=== PATIENT | male | born 1980 | race Caucasian/White ===

== ENCOUNTER → 2019-11-08 | Outpatient (CLI) | payer MEDICARE, OTHER ==
--- NOTE | 2019-11-08 13:53 | XR ---
EXAMINATION TYPE: XR lumbosacral spine min 4V DATE OF EXAM: 11/08/2019 CLINICAL HISTORY: Degeneration of lumbar disc per order. Low back pain into right leg for patient. TECHNIQUE: Frontal, lateral, and oblique images of the lumbar spine are obtained. COMPARISON: None FINDINGS: There are 5 lumbar type vertebral bodies identified. The lumbar spine shows somewhat stra ightened alignment without evidence of acute fracture or dislocation. Vertebral body heights and disk space heights are within normal limits. The oblique images appear within normal limits. The overl chiki soft tissue appears unremarkable. IMPRESSION: As above.
== END | disposition home or self-care (01) ==
LOC: RADXRMAIN 13:19
PROVIDERS: ATTEND Family Medicine
DX: M51.36 Other intervertebral disc degeneration, lumbar region (principal)
CPT/HCPCS: 72110

== ENCOUNTER → 2019-12-13 | Day surgery (SDC) | payer MEDICARE, OTHER ==
[2019-12-11 10:46] VITALS: BMI 27.5
[~2019-12-13] MED LIST: LACTATED RINGERS 1,000 ML IV SCH; LIDOCAINE 1% (10MG/ML) FOR IV START INTRADERMA PRN; MIDAZOLAM 2 MG/2 ML VIAL ONE; PROPOFOL 10 MG/ML 20 ML VIAL IV ONE
[2019-12-13 08:44] VITALS: TEMP 97.6
--- NOTE | 2019-12-13 09:26 | P.GSHP ---
History of Present Illness H&P Date: 12/13/19 CHIEF COMPLAINT: Colon screen HISTORY OF PRESENT ILLNESS: The patient is a 39-year-old male who presents for colon screen. Lower endoscopy was offered for further evaluation and management. PAST MEDICAL HISTORY: Please see list. PAST SURGICAL HISTORY: Please see list. MEDICATIONS: Please see list. ALLERGIES: Please see list. SOCIAL HISTORY: No illicit drug use FAMILY HISTORY: No reports of Crohn disease or ulcerative colitis. REVIEW OF ORGAN SYSTEMS: CONSTITUTIONAL: No reports of fevers or chills. PHYSICAL EXAM: VITAL SIGNS: Stable GENERAL: Well-developed pleasant in no acute distress. HEENT: No scleral icterus. Extraocular movements grossly intact. Moist buccal mucosa. NECK: Supple without lymphadenopathy. CHEST: Unlabored respirations. Equal bilateral excursions. CARDIOVASCULAR: Regular rate and rhythm. Distal 2+ pulses. ABDOMEN: Soft, nontender, nondistended. MUSCULOSKELETAL: No clubbing, cyanosis, or edema. ASSESSMENT: 1. Colon screen. PLAN: 1. Recommend proceeding with a lower endoscopy Past Medical History Past Medical History: Musculoskeletal Disorder Additional Past Medical History / Comment(s): bulging disc, sciatic pain, DDD, family hx. colon cancer History of Any Multi-Drug Resistant Organisms: None Reported Past Surgical History: No Surgical Hx Reported Additional Past Anesthesia/Blood Transfusion Reaction / Comment(s): no family hx. of problems w/anesthesia Smoking Status: Never smoker - Past Family History Father Family Medical History: Cancer Additional Family Medical History / Comment(s): colon Medications and Allergies Home Medications Medication Instructions Recorded Confirmed Type Cyclobenzaprine [Flexeril] 10 mg PO TID PRN 12/11/19 12/13/19 History Multivitamin [Multivitamins Adult 1 each PO DAILY 12/11/19 12/13/19 History Gummies] Allergies Allergy/AdvReac Type Severity Reaction Status Date / Time No Known Allergies Allergy Verified 12/13/19 08:33 Surgical - Exam Vital Signs Temp Pulse Resp BP Pulse Ox 97.6 F 110 H 18 128/81 96 12/13/19 08:42 12/13/19 08:42 12/13/19 08:42 12/13/19 08:42 12/13/19 08:42
[2019-12-13 09:49] VITALS: RESP 16
[2019-12-13 09:57] VITALS: BP 112/74; PULSE 85
--- NOTE | 2019-12-13 09:58 | P.PCN ---
Date of Procedure: 12/13/19 Description of Procedure: PREOPERATIVE DIAGNOSIS: Family history malignant colon polyps, father High-risk colon cancer screening POSTOPERATIVE DIAGNOSIS: Family history malignant colon polyps, father High-risk colon cancer screening Tubular adenoma, ascending colon Tubular adenoma, sigmoid colon OPERATION: Colonoscopy to the ileocecal valve and appendiceal orifice. Colonoscopy with cold forceps biopsies SURGEON: Meenakshi Alas MD. ANESTHESIA: MAC. INDICATIONS: The patient is an 39-year-old male who presents family history of malignant colon polyps who presents for first colonoscopy screening. Benefits and risks were described and informed consent was obtained. DESCRIPTION OF PROCEDURE: The patient had undergone Suprep. He had been brought into the operating room and laid in the left lateral decubitus position. After adequate intravenous sedation, the rectum was examined with 2% lidocaine jelly. The prostate was unremarkable. No external hemorrhoids were encountered. The rectal tone was within normal limits. No lesions were palpated in the rectal vault. An Olympus colonoscope was advanced until the ileocecal valve and appendiceal orifice were clearly viewed. The prep was good. No sigmoid diverticulosis was encountered. Multiple colonic polyps were found and removed with cold forceps biopsy. No evidence of focal colitis was found. Retroflexion of the scope demonstrated grade 1 internal hemorrhoids without active bleeding or inflammation. The colon was desufflated. The patient had tolerated the procedure well. Withdrawal time was over 6 minutes. FINDINGS: Aronchick preparation quality scale 2 (1-5) Internal hemorrhoids, grade 1 No external hemorrhoids No arteriovenous malformations No sigmoid diverticulosis Removal of 4 polyps: - Cold forceps biopsy at 15 cm from the anal verge x 3, 3 to 4 mm polyps, descending colon. - Cold forceps biopsy at ascending colon, 4 mm polyp. No focal colitis. RECOMMENDATIONS: Repeat colonoscopy in 5 years, 2024 Plan - Discharge Summary Discharge Rx Participant: No New Discharge Prescriptions: Continue Cyclobenzaprine [Flexeril] 10 mg PO TID PRN PRN Reason: Muscle Spasm Multivitamin [Multivitamins Adult Gummies] 1 each PO DAILY Discharge Medication List Cyclobenzaprine [Flexeril] 10 mg PO TID PRN 12/11/19 [History] Multivitamin [Multivitamins Adult Gummies] 1 each PO DAILY 12/11/19 [History] Follow up Appointment(s)/Referral(s): Meenakshi Alas MD [STAFF PHYSICIAN] - 12/26/19 Patient Instructions/Handouts: *Surgery [facility] - (Anesthesia) Endoscopy Discharge Instructions, Colorectal Polyps (DC) Activity/Diet/Wound Care/Special Instructions: Repeat colonoscopy 5 years, 2024 Discharge Disposition: HOME SELF-CARE
== END | disposition home or self-care (01) ==
LOC: ORWHC2ENDO 08:15
PROVIDERS: ATTEND Surgery Plastic and Reconstructive Surgery
DX: Z12.11 Encounter for screening for malignant neoplasm of colon (principal); D12.2 Benign neoplasm of ascending colon; K63.5 Polyp of colon; K64.0 First degree hemorrhoids; Z80.0 Family history of malignant neoplasm of digestive organs; M54.30 Sciatica, unspecified side; Z79.899 Other long term (current) drug therapy; Z87.891 Personal history of nicotine dependence
CPT/HCPCS: 88305; 45380; J2250; J2704

== ENCOUNTER 2025-04-05 08:11 | Day surgery (SDC) | payer MEDICARE, OTHER ==
[2025-04-03 16:02] VITALS: BMI 25.8
--- NOTE | 2025-04-05 07:40 | P.GSHP ---
History of Present Illness H&P Date: 04/05/25 CHIEF COMPLAINT: Colon screen HISTORY OF PRESENT ILLNESS: The patient is a 44-year-old male who presents for colon screen. Lower endoscopy was offered for further evaluation and management. PAST MEDICAL HISTORY: Please see list. PAST SURGICAL HISTORY: Please see list. MEDICATIONS: Please see list. ALLERGIES: Please see list. SOCIAL HISTORY: No illicit drug use FAMILY HISTORY: No reports of Crohn disease or ulcerative colitis. REVIEW OF ORGAN SYSTEMS: CONSTITUTIONAL: No reports of fevers or chills. PHYSICAL EXAM: VITAL SIGNS: Stable GENERAL: Well-developed pleasant in no acute distress. HEENT: No scleral icterus. Extraocular movements grossly intact. Moist buccal mucosa. NECK: Supple without lymphadenopathy. CHEST: Unlabored respirations. Equal bilateral excursions. CARDIOVASCULAR: Regular rate and rhythm. Distal 2+ pulses. ABDOMEN: Soft, nontender, nondistended. MUSCULOSKELETAL: No clubbing, cyanosis, or edema. ASSESSMENT: 1. Colon screen. PLAN: 1. Recommend proceeding with a lower endoscopy Past Medical History Past Medical History: Musculoskeletal Disorder Additional Past Medical History / Comment(s): bulging disc, sciatic pain, DDD, hx precancerous colon polyps,family hx.-father had colon cancer History of Any Multi-Drug Resistant Organisms: None Reported Past Surgical History: No Surgical Hx Reported Additional Past Surgical History / Comment(s): colonoscopy Past Anesthesia/Blood Transfusion Reactions: No Reported Reaction Additional Past Anesthesia/Blood Transfusion Reaction / Comment(s): no family hx. of problems w/anesthesia Smoking Status: Never smoker - Past Family History Father Family Medical History: Cancer Additional Family Medical History / Comment(s): colon Medications and Allergies Home Medications Medication Instructions Recorded Confirmed Type Cyclobenzaprine [Flexeril] 10 mg PO TID PRN 12/11/19 04/03/25 History Multivitamin [Multivitamins Adult 1 each PO DAILY 12/11/19 04/03/25 History Gummies] Celecoxib [CeleBREX] 200 mg PO BID PRN 04/03/25 04/03/25 History Cholecalciferol [Vitamin D3 (125 125 mcg PO DAILY 04/03/25 04/03/25 History Mcg = 5000 Iu)] [place]-3/Dha/Epa/Fish Oil [Fish Oil 720 mg PO DAILY 04/03/25 04/03/25 History 500 mg Softgel] Allergies Allergy/AdvReac Type Severity Reaction Status Date / Time No Known Allergies Allergy Verified 04/03/25 15:55
[2025-04-05] MEDS: IV FLUID CONTINUATION 1,000 ML IV ONE (08:40)
[2025-04-05] MEDS ORDERED: LACTATED RINGERS 1,000 ML IV SCH (08:42)
[2025-04-05 08:56] VITALS: RESP 16; TEMP 97.1
[2025-04-05] MEDS ORDERED: PROPOFOL 10 MG/ML 20 ML VIAL IV ONE (09:40)
[2025-04-05] MEDS ORDERED: fentaNYL (PF) 50 MCG/ML 2 ML AMP ONE (09:40)
[2025-04-05] MEDS ORDERED: LIDOCAINE 1% INJ 10MG/ML (20 ML MDV) ONE (09:40)
[2025-04-05 10:23] VITALS: BP 116/79; PULSE 62
--- NOTE | 2025-04-05 10:37 | P.PCN ---
Date of Procedure: 04/05/25 Description of Procedure: PREOPERATIVE DIAGNOSIS: Personal history of colon polyps Family history malignant colon polyps Colonoscopy screening POSTOPERATIVE DIAGNOSIS: Tubular adenoma sigmoid colon Sigmoid diverticulosis OPERATION: Colonoscopy to the ileocecal valve and appendiceal orifice, cecum Colonoscopy with cold forceps biopsy SURGEON: Meenakshi Alas MD. ANESTHESIA: MAC. INDICATIONS: The patient is an 44-year-old male who presents family history of malignant colon polyps and personal history of colon polyps. Last colonoscopy 5 years. Benefits and risks were described and informed consent was obtained. DESCRIPTION OF PROCEDURE: The patient had undergone Suprep. The patient had been brought into the operating room and laid in the left lateral decubitus position. After adequate intravenous sedation, the rectum was examined with 2% lidocaine jelly. The prostate was unremarkable. External hemorrhoids were encountered. The rectal tone was within normal limits. No lesions were palpated in the rectal vault. An Olympus colonoscope was advanced until the cecum, ileocecal valve and appendiceal orifice were clearly viewed. The prep was excellent. Sigmoid diverticulosis was encountered. Colonic polyps were found and removed. No evidence of focal colitis was found. Retroflexion of the scope demonstrated grade 2 internal hemorrhoids without active bleeding or inflammation. The colon was desufflated. The patient had tolerated the procedure well. Withdrawal time was over 6 minutes. FINDINGS: Aronchick preparation quality scale 1 (1-5) Internal hemorrhoids, grade 1 No external hemorrhoids No arteriovenous malformations. Sigmoid diverticulosis Removal of 1 polyps: - Cold forceps biopsy at sigmoid colon, 4 mm adenoma No focal colitis. RECOMMENDATIONS: Repeat colonoscopy 3 years, 2027 Plan - Discharge Summary Discharge Rx Participant: No New Discharge Prescriptions: Continue Cyclobenzaprine [Flexeril] 10 mg PO TID PRN PRN Reason: Muscle Spasm Multivitamin [Multivitamins Adult Gummies] 1 each PO DAILY [place]-3/Dha/Epa/Fish Oil [Fish Oil 500 mg Softgel] 720 mg PO DAILY Cholecalciferol [Vitamin D3 (125 Mcg = 5000 Iu)] 125 mcg PO DAILY Celecoxib [CeleBREX] 200 mg PO BID PRN PRN Reason: Pain Discharge Medication List Cyclobenzaprine [Flexeril] 10 mg PO TID PRN 12/11/19 [History] Multivitamin [Multivitamins Adult Gummies] 1 each PO DAILY 12/11/19 [History] Celecoxib [CeleBREX] 200 mg PO BID PRN 04/03/25 [History] Cholecalciferol [Vitamin D3 (125 Mcg = 5000 Iu)] 125 mcg PO DAILY 04/03/25 [History] [place]-3/Dha/Epa/Fish Oil [Fish Oil 500 mg Softgel] 720 mg PO DAILY 04/03/25 [History] Follow up Appointment(s)/Referral(s): Meenakshi Alas MD [STAFF PHYSICIAN] - As Needed Patient Instructions/Handouts: *Surgery [facility] - (Anesthesia) Discharge Instructions Outpatient Surgery, Diverticulosis (ED), Colorectal Polyps (GEN), Colonoscopy (DC) Activity/Diet/Wound Care/Special Instructions: Repeat colonoscopy age 47, 5 years, 2027 Discharge Disposition: HOME SELF-CARE
== END 2025-04-05 10:50 | disposition home or self-care (01) ==
LOC: ORWHC2ENDO 08:11
PROVIDERS: ATTEND Surgery Plastic and Reconstructive Surgery
DX: Z12.11 Encounter for screening for malignant neoplasm of colon (principal); D12.5 Benign neoplasm of sigmoid colon; K57.30 Diverticulosis of large intestine without perforation or abscess without bleeding; K64.1 Second degree hemorrhoids; K64.4 Residual hemorrhoidal skin tags; Z86.0101 Personal history of adenomatous and serrated colon polyps; Z80.0 Family history of malignant neoplasm of digestive organs; Z79.899 Other long term (current) drug therapy
CPT/HCPCS: 45380; J2003; J3010; J2704; 88305